=== PATIENT | female | born 1980 | race Caucasian/White ===

== ENCOUNTER 2019-11-16 19:03 | Emergency (ER) | payer SELFPAY ==
[2019-11-16 19:12] VITALS: BP 148/83; PULSE 83; RESP 18; TEMP 37.6; O2SAT 100
--- NOTE | 2019-11-16 19:30 | ED.URI ---
HPI - URI/Sore Throat General Chief Complaint: Upper Respiratory Infection Stated Complaint: sore throat Time Seen by Provider: 11/16/19 19:30 Source: patient and family History of Present Illness HPI Narrative: Patient presents with a sore throat problem, no trouble swallowing no drooling. Patient states her symptoms started earlier today. She has generalized body aches feels more tired than normal. Patient has not taken anything [id number] for symptoms. Normally healthy individual. MD elicited complaint: fever, cough, sore throat and nasal congestion Related Data Allergies Allergy/AdvReac Type Severity Reaction Status Date / Time prednisone AdvReac Unknown Confusion Verified 11/16/19 19:22 Review of Systems Review of Systems: Narrative: CONSTITUTIONAL: Denies chills, or sweats. Reports fever and generalized body aches EYES: Denies visual changes, redness, or discharge. ENT: Denies otalgia. Reports nasal congestion runny nose and sore throat CARDIOVASCULAR: Denies chest pain, palpitations, or edema. RESPIRATORY: Denies dyspnea. Reports occasional cough GASTROINTESTINAL: Denies abdominal pain, nausea, vomiting, or diarrhea. GENITOURINARY: Denies dysuria or hematuria. SKIN: Denies rash or itching. MUSCULOSKELETAL: Denies back pain, joint pain, or myalgia. Reports generalized body aches NEUROLOGIC: Denies headache, numbness, or weakness. PSYCHIATRIC: Denies anxiety or depression. PMFSH Comments At time of signature, agree with nursing past medical, surgical, social and family history. There is no relevant family history pertinent to the presenting complaint Exam Narrative: Exam Narrative: The patient is a well-developed, well-nourished in no acute distress. SKIN: Skin is warm and dry without erythema, swelling or exudate. There is good turgor. No tenting. HEAD: Atraumatic. Normocephalic. No temporal or scalp tenderness. EYES: Moist and bright. Sclera and conjunctivae normal. No discharge. PERRLA. Extraocular motions intact. Gross visual acuity intact. EARS: Pinna is normal shape and contour. Clear external auditory canals. TM pearly shafer with good cone of light, no erythema or suppuration. Bilateral cerumen noted no gross hearing deficit. NOSE: pink, moist mucosa with good air movement. Clear rhinorrhea without nasal flaring. Septum midline. Mouth: moist mucous membranes. THROAT; mild erythema noted to posterior oropharynx with moderate postnasal drainage. Without exudate or ulceration.. Uvula midline. Normal movement of soft palate. NECK: Supple and nontender with full range of motion without discomfort. No meningeal signs. LUNGS: Equal and bilateral breath sounds without wheezes, rales or rhonchi. CHEST: The chest wall is without retractions or use of accessory muscles. HEART: Has a regular rate and rhythm without murmur, gallops, click or rub. ABDOMEN: Soft, nontender with positive active bowel sounds. No rebound tenderness. EXTREMITIES: Without cyanosis, clubbing or edema. Equal 2+ distal pulses and 2 second capillary refill noted. NEUROLOGIC: alert, active, . The patient moves all extremities with normal muscle strength. Normal muscle tone is noted. Normal coordination is noted. NO focal neurological findings noted. Course Vital Signs Vital signs: Vital Signs Temperature 37.6 C 11/16/19 19:12 Pulse Rate 83 11/16/19 19:12 Respiratory Rate 18 11/16/19 19:12 Blood Pressure 148/83 H 11/16/19 19:12 Pulse Oximetry 100 11/16/19 19:12 Temperature 37.6 C 11/16/19 19:12 Pulse Rate 83 11/16/19 19:12 Respiratory Rate 18 11/16/19 19:12 Blood Pressure 148/83 H 11/16/19 19:12 Pulse Oximetry 100 11/16/19 19:12 Addressed elevated BP today. Today's blood pressure higher than recommended range. Discussed importance of follow -up with PCP and possible retirement effects/cardiovascular events related to HTN. Currently patient denies headache, dizziness, vision changes, CP or shortness of breath.
== END 2019-11-16 19:50 | disposition home or self-care (01) ==
PROVIDERS: Emergency Provider Nurse Practitioner Family
DX: J06.9 Acute upper respiratory infection, unspecified (principal); J02.9 Acute pharyngitis, unspecified; M19.90 Unspecified osteoarthritis, unspecified site
CPT/HCPCS: 87081; 87804; 87880; 99213; G0463

== ENCOUNTER 2020-11-23 10:35 | Emergency (ER) | payer MEDICAID, SELFPAY ==
--- NOTE | ~2020-11-23 | XR_ITS ---
EXAMINATION: XR chest 2V EXAM DATE: 11/23/2020 11:39 INDICATION: Abnormal chest x-ray, lung nodule left side. Right-sided back pain. TECHNIQUE: Frontal and lateral projections of the chest obtained and reviewed. Comparison is made to prior examination from 12/12/2015. FINDINGS: The lungs are clear. There are no pleural effusions. The cardiomediastinal silhouette is within normal limits. There is no pneumothorax suspected. Mild thoracic dextroscoliosis. IMPRESSION: Clear lungs. Mild thoracic dextroscoliosis. Reviewed, dictated and finalized at location B. [employer]
--- NOTE | 2020-11-23 10:49 | ED.BACK ---
HPI - Back Pain/Injury General Chief Complaint: Back Pain/Injury Stated Complaint: Back Pain Time Seen by Provider: 11/23/20 10:49 Source: patient and RN notes reviewed History of Present Illness HPI Narrative: Patient is a 40-year-old female who presents the urgent care with complaints of right sided low back pain. Patient states she also has weird feeling in her female parts . Patient does not elaborate on what those weird feelings consist of and she is currently denying of any urinary frequency, burning, urgency or abdominal pain. Patient denies of any fever or vomiting but states she has had intermittent nausea. Patient speaks of many different topics while in the room and appears to be needing psychiatric attention. Patient reports that she was in the emergency room in August and they found a spot on her lung but then she associated the spot on the lung to pneumonia. Patient states that she was treated for both pneumonia and a urinary tract infection due to having blood in the urine. Patient states that it took care of that issue but now the low back pain is back. Patient states that sometimes she feels like someone choking her . And then patient begins to speak about her back pain again. Patient also does not elaborate on the choking sensation and is denying of any history of gastric reflux or vomiting. Patient did mention several times that she was given pain medication for her pain in the emergency room . Patient was made aware that our facility does not refill pain medications. Patient then proceeds to take a phone call and text on her phone while the provider was in the room. Patient does not appear to have any acute medical needs. Patient aware of the plan of care, to the best of my knowledge. Some parts of this dictation were generated by voice recognition software and may contain typographical and/or grammatical inaccuracies. Related Data Home Medications Medication Instructions Recorded Confirmed No Home Medications 11/23/20 11/23/20 Allergies Allergy/AdvReac Type Severity Reaction Status Date / Time prednisone AdvReac Unknown Confusion Verified 11/23/20 10:46 Review of Systems Review of Systems: Narrative: CONSTITUTIONAL: Denies fever, chills, or sweats. EYES: Denies visual changes, redness, or discharge. ENT: Denies rhinorrhea, congestion, sore throat, or otalgia. CARDIOVASCULAR: Denies chest pain, palpitations, or edema. RESPIRATORY: Denies cough or dyspnea. GASTROINTESTINAL: Reports of intermittent nausea GENITOURINARY: Denies dysuria or hematuria. SKIN: Denies rash or itching. MUSCULOSKELETAL: Reports of right-sided low back pain NEUROLOGIC: Denies headache, numbness, or weakness. All other systems reviewed are negative, except as documented in HPI. PMFSH Comments At the time of my signature, I reviewed and agree with the nursing past medical, surgical, social, and family history. There is no relevant family history pertinent to the patient complaint. Exam Narrative: Exam Narrative: GENERAL: This is a well-nourished, well-developed patient, in no apparent distress. HEAD: normocephalic, atraumatic. EYES: PERRL. Sclera clear/white. Vision is grossly intact. EARS: External ears normal NOSE: External nose normal with no obvious nasal discharge, nares without redness, no rhinorrhea. THROAT: Mucous membranes moist NECK: Neck supple CARDIOVASCULAR: Regular rate and rhythm without murmurs, gallops, or rubs. RESPIRATORY: Clear to auscultation. Breath sounds equal bilaterally. No wheezes, rales, or rhonchi. GASTROINTESTINAL: Abdomen soft, mild diffuse tenderness, nondistended. Bowel sounds are active. No guarding. SKIN: warm, intact with no suspicious lesions or rash, good texture and turgor. NEURO: awake, alert, and oriented to person, place and time. There were no obvious focal neurologic abnormalities. EXTREMITIES: No clubbing, cyanosis, or edema. BACK: Bilateral CVA tenderness, more notable on t
[2020-11-23 10:55] VITALS: BP 128/90; PULSE 72; RESP 18; TEMP 36.1; O2SAT 99
== END 2020-11-23 11:50 | disposition home or self-care (01) ==
PROVIDERS: Emergency Provider Nurse Practitioner Family
DX: M54.5 Low back pain (principal); M19.90 Unspecified osteoarthritis, unspecified site
CPT/HCPCS: 71046; 81003; 99213; G0463

== ENCOUNTER 2021-02-16 09:46 | Emergency (ER) | payer OTHER, SELFPAY ==
[2021-02-16 09:53] VITALS: BP 136/92; PULSE 81; RESP 16; TEMP 37.2; O2SAT 100
--- NOTE | 2021-02-16 09:56 | ED.URI ---
HPI - URI/Sore Throat General Chief Complaint: Upper Respiratory Infection Stated Complaint: Sore Throat Source: patient Mode of arrival: ambulatory Limitations: no limitations History of Present Illness HPI Narrative: Candis Mobley is a 40 yo with PMH arthritis, Covidlast year, who comes to [facility] with sore throat since yesterday. Patient is a smoker but does not take any other medication Related Data Allergies Allergy/AdvReac Type Severity Reaction Status Date / Time prednisone AdvReac Unknown Confusion Verified 02/16/21 10:04 Review of Systems Review of Systems: Narrative: CONSTITUTIONAL: Denies fever, chills, sweats. EYES: Denies visual changes, redness, discharge. ENT: Denies rhinorrhea, congestion, has sore throat, otalgia. CARDIOVASCULAR: Denies chest pain, palpitations, edema. RESPIRATORY: Denies dyspnea, wheezing, cough GASTROINTESTINAL: Denies abdominal pain, nausea, vomiting, diarrhea. GENITOURINARY: Denies dysuria, hematuria, abnormal discharge SKIN: Denies rash or itching. NEUROLOGIC: Denies numbness, or focal weakness. PSYCHIATRIC: Denies anxiety or depression. [facility] Past Medical History Medical History Arthritis Scoliosis Social History Social History (Updated 02/16/21 @ 10:16 by Maggie Olson CNP) Smoking packs per day: 1 Smoking cigarettes per day: 20.0 Smoking status: Current every day smoker Tobacco type: cigarettes Alcohol intake: current Comments At time of signature, I agree with nursing past medical, surgical, social and family history. There is no relevant family history pertinent to the presenting complaint. Exam Narrative: Exam Narrative: GENERAL: This is a well-nourished, well-developed patient, in mild distress. HEAD: normocephalic, atraumatic. EYES: Sclera clear/white. Vision is grossly intact. EARS: External ears normal, auditory canals clear and without drainage, TMs normal without perforation. Hearing grossly intact. NOSE: External nose normal without nasal discharge, nares without red, some rhinorrhea. THROAT: Mucous membranes moist, posterior pharynx erythema with white drainage on right NECK: Neck supple, tender right submandibular lymph node CARDIOVASCULAR: Regular rate and rhythm without murmurs, gallops, or rubs. RESPIRATORY: Clear to auscultation. Breath sounds equal bilaterally. No wheezes, rales, or rhonchi. GASTROINTESTINAL: Abdomen soft, SKIN: warm, intact with no suspicious lesions or rash, good texture and turgor. NEURO: awake, alert, and oriented to person, place and time. There were no obvious focal neurologic abnormalities. Steady gait EXTREMITIES: Normal range of motion. BACK: Nontender without deformity Course Course Emergency Course: Patient here with sore throat since yesterday states she has ongoing sinus drainage Strep negative Patient is unable to take prednisone and has both white blotch on right tonsil and pain on palpation of right side of lymph nodes Treat with penicillin and Zyrtec Vital Signs Vital signs: Vital Signs Temperature 99 F 02/16/21 09:53 Pulse Rate 81 02/16/21 09:53 Respiratory Rate 16 02/16/21 09:53 Blood Pressure 136/92 H 02/16/21 09:53 Pulse Oximetry 100 02/16/21 09:53 Temperature 99 F 02/16/21 09:53 Pulse Rate 81 02/16/21 09:53 Respiratory Rate 16 02/16/21 09:53 Blood Pressure 136/92 H 02/16/21 09:53 Pulse Oximetry 100 02/16/21 09:53 MDM - URI/Sore Throat Differential Diagnosis Differential diagnosis: Likely upper respiratory infection, viral infection, bronchitis, pharyngitis and other Lab Data Labs: Strep Screen Presumptive Negative *(Reference Range: Negative)* Critical Care Time Critical Care Time Critical Care Time: No Discharge Plan Discharge Clinical Impression: Pharyngitis Qualifiers: Pharyngitis/tonsillitis etiology: unspecified
== END 2021-02-16 10:33 | disposition home or self-care (01) ==
PROVIDERS: Emergency Provider Nurse Practitioner
DX: J02.9 Acute pharyngitis, unspecified (principal); F17.219 Nicotine dependence, cigarettes, with unspecified nicotine-induced disorders; M19.90 Unspecified osteoarthritis, unspecified site; M41.9 Scoliosis, unspecified
CPT/HCPCS: 87081; 87880; 99213; G0463

== ENCOUNTER 2021-10-15 16:41 | Emergency (ER) | payer OTHER, SELFPAY ==
[2021-10-15 16:46] VITALS: BP 128/77; PULSE 73; RESP 14; TEMP 36.9; O2SAT 100
--- NOTE | 2021-10-15 16:55 | ED.URI ---
HPI - URI/Sore Throat General Chief Complaint: Upper Respiratory Infection Stated Complaint: no smell or taste chest heavy Source: patient Mode of arrival: ambulatory Limitations: no limitations History of Present Illness HPI Narrative: 41-year-old female presented for headache, body aches, sinus pressure/congestion, cough, fever/chills. Onset about 4 days. She endorses loss of taste and smell today. Denies wheezing or chest pain. she is not vaccinated for Covid. Denies medical history, but significant smoking history. Cannot tolerate albuterol inhaler. MD elicited complaint: cough Related Data Allergies Allergy/AdvReac Type Severity Reaction Status Date / Time prednisone AdvReac Unknown Confusion Verified 02/16/21 10:04 Review of Systems Review of Systems: CONSTITUTIONAL: Endorses malaise, chills, sweats, fever. EYES: Endorses pressure behind eyes. Denies visual changes, redness, or discharge. ENT: Reports rhinorrhea, congestion, sinus pain denies otalgia and sore throat. CARDIOVASCULAR: Denies chest pain, palpitations, or edema. RESPIRATORY: Reports cough, post nasal drainage and dyspnea with exertion GASTROINTESTINAL: Denies abdominal pain, nausea, vomiting, diarrhea SKIN: Denies rash or itching. MUSCULOSKELETAL: Endorses myalgia. NEUROLOGIC: Denies headache. [facility] Past Medical History Medical History Arthritis Scoliosis Social History Social History Smoking packs per day: 1 Smoking cigarettes per day: 20.0 Smoking status: Current every day smoker Tobacco type: cigarettes Alcohol intake: current Exam Narrative: GENERAL: Ill-appearing, unkempt, nontoxic no acute distress. HEAD: Normocephalic EYES: PERRLA, conjunctivae clear ENT: Mucous membranes moist. TM pearly nieto with dull light reflex bilaterally; no tragal tenderness. Oropharynx erythematous without lesions and without exudate, no drooling, no hoarseness, no trismus, uvula midline. NECK: Supple. left anterior cervical lymphadenopathy CHEST: Clear to auscultation, breath sounds equal. No wheezing, rhonchi, rales, or stridor. No respiratory distress, speaks in full sentences. HEART: Regular rate and rhythm. No murmur heard. SKIN: Warm, dry, no rash. NEURO: Alert and oriented x3. PSYCH: Normal mood and affect Course Course Emergency Course: covid positive offered to give Rx albuterol rescue inhaler, pt states she cannot tolerate albuterol it causes heart racing. Advised she f/u with PCP for further recommendations. Patient is aware of diagnosis, understands and agrees to treatment plan. Anticipatory guidance given. Patient agrees to follow-up as directed and is aware of reasons to seek care at the emergency department. Portions of this record may have been created with voice recognition software Level of Care: Express Care Visit Vital Signs Vital signs: Vital Signs Temperature 98.5 F 10/15/21 16:46 Pulse Rate 73 10/15/21 16:46 Respiratory Rate 14 10/15/21 16:46 Blood Pressure 128/77 10/15/21 16:46 Pulse Oximetry 100 10/15/21 16:46 Temperature 98.5 F 10/15/21 16:46 Pulse Rate 73 10/15/21 16:46 Respiratory Rate 14 10/15/21 16:46 Blood Pressure 128/77 10/15/21 16:46 Pulse Oximetry 100 10/15/21 16:46 reviewed MDM - URI/Sore Throat Differential Diagnosis Differential diagnosis: Likely upper respiratory infection, sinusitis, viral infection and pharyngitis Lab Data Labs: Lab Results 10/15/21 Range/Units 17:13 POC SARS CoV-2 Ag Positive (Negative) Discharge Plan Discharge Clinical Impression: COVID-19 Patient Disposition: Home, Self-Care Condition: Stable Instructions: Antibiotic Form, COVID-19 (Coronavirus Disease 2019) (ED) Additional Instructions: Your rapid COVID test was positive today. The following recommendations have been made by the CDC and local H
== END 2021-10-15 17:39 | disposition home or self-care (01) ==
PROVIDERS: Emergency Provider Nurse Practitioner Family
DX: U07.1 COVID-19 (principal); M19.90 Unspecified osteoarthritis, unspecified site; M41.9 Scoliosis, unspecified; F17.210 Nicotine dependence, cigarettes, uncomplicated
CPT/HCPCS: 87426; 99213; C9803; G0463

== ENCOUNTER 2023-02-15 18:30 | Emergency (ER) | payer OTHER, SELFPAY ==
[2023-02-15 18:36] VITALS: BP 128/90; PULSE 91; RESP 16; TEMP 37.4; O2SAT 99
--- NOTE | 2023-02-15 18:36 | ED.URI ---
HPI - URI/Sore Throat General Chief Complaint: Upper Respiratory Infection Stated Complaint: Wheezing and congestion Time Seen by Provider: 02/15/23 18:40 Source: patient Mode of arrival: ambulatory Limitations: no limitations History of Present Illness HPI Narrative: 42-year-old female presents for of cough, nasal congestion, subjective fever and fatigue for 3 days. States she is coughing up 'infection' and lungs feel like they are burning. She has not taken anything for symptoms. Endorses similar symptoms of concern to her family earlier in the week. She currently smokes 1 pack per day. She reports cough is so severe it causes gagging/ vomiting. States she is unable to tolerate prednisone causes causes confusion, unable to tolerate albuterol because it makes her feel drunk. Related Data Allergies Allergy/AdvReac Type Severity Reaction Status Date / Time prednisone AdvReac Unknown Confusion Verified 02/16/21 10:04 Review of Systems Review of Systems: CONSTITUTIONAL: Reports body aches, fever, chills EYES: Denies visual changes, redness, or discharge. ENT: reports rhinorrhea, congestion, sore throat CARDIOVASCULAR: Denies chest pain, palpitations, or edema. RESPIRATORY: Reports cough, sob, wheezing. GASTROINTESTINAL: Denies abdominal pain, nausea, or diarrhea. GENITOURINARY: Denies dysuria or hematuria. SKIN: Denies rash, itching, or wounds. MUSCULOSKELETAL: Denies back pain, joint pain, or myalgia. NEUROLOGIC: Denies headache, numbness, tingling, or weakness. All systems reviewed & are unremarkable except as noted in HPI and below PMFSH Past Medical History Medical History Arthritis Scoliosis Social History Social History Smoking packs per day: 1 Smoking cigarettes per day: 20.0 Smoking status: Current every day smoker Tobacco type: cigarettes Alcohol intake: current Comments At time of signature, I have reviewed and agree with nursing past medical, surgical, social and family history unless otherwise noted. Please see nursing chart for further information. There is no relevant family history pertinent to the presenting complaint Exam Narrative: GENERAL: ill-appearing, in no acute distress. EYES: EOMI. No redness or drainage. Conjunctivae normal. ENT: Mucous membranes pink and moist. No rhinorrhea. TMs normal bilaterally. Throat normal. Uvula midline. NECK: Normal AROM. Supple. 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 Right lower lobe exp wheeze noted. HEART: Regular rate and rhythm. No murmur appreciated. ABDOMEN: Soft, nontender, nondistended, normal active bowel sounds. EXTREMITIES: Normal range of motion. No edema. SKIN: Warm, dry, no rash. Capillary refill normal. Normal skin turgor. NEURO: Alert and oriented x3. Gait steady. PSYCH: flat affect. Course Course Emergency Course: Patient is aware of diagnosis, understands and agrees to treatment plan. Anticipatory guidance given. Patient agrees to follow-up as directed and is aware of reasons to seek care at the emergency department. Portions of this record may have been created with voice recognition software Level of Care: Express Care Visit Vital Signs Vital signs: Vital Signs Temperature 99.4 F 02/15/23 18:36 Pulse Rate 91 02/15/23 18:36 Respiratory Rate 16 02/15/23 18:36 Blood Pressure 128/90 02/15/23 18:36 Pulse Oximetry 99 02/15/23 18:36 Oxygen Delivery Room Air 02/15/23 18:36 Temperature 99.4 F 02/15/23 18:36 Pulse Rate 91 02/15/23 18:36 Respiratory Rate 16 02/15/23 18:36 Blood Pressure 128/90 02/15/23 18:36 Pulse Oximetry 99 02/15/23 18:36 Oxygen Delivery Room Air 02/15/23 18:36 MDM - URI/Sore Throat MDM Narrative Medical decision making narrative: Negative COVID test results reviewed with patient. Advised ER transfe
== END 2023-02-15 19:38 | disposition home or self-care (01) ==
PROVIDERS: Emergency Provider Nurse Practitioner Family
DX: J40 Bronchitis, not specified as acute or chronic (principal); Z20.822 Contact with and (suspected) exposure to COVID-19; F17.210 Nicotine dependence, cigarettes, uncomplicated; M19.90 Unspecified osteoarthritis, unspecified site; M41.9 Scoliosis, unspecified
CPT/HCPCS: 87426; 99213; C9803; G0463

== ENCOUNTER 2023-03-07 11:43 | Emergency (ER) | payer OTHER, SELFPAY ==
--- NOTE | ~2023-03-07 | XR_ITS ---
EXAMINATION: XR chest 1V portable DATE: 03/07/2023 12:44 INDICATION: Seizure TECHNIQUE: frontal view of the chest was obtained. COMPARISON: Chest radiograph dated 11/23/2020 FINDINGS: The lungs remain clear with no focal airspace opacities, pulmonary edema, pleural effusion or pneumot horax. The cardiomediastinal silhouette is normal. Mild thoracic dextrocurvature. IMPRESSION: 1. No acute cardiopulmonary disease. Reviewed, dictated and finalized at location A.
--- NOTE | ~2023-03-07 | CT_ITS ---
Non-contrast Head CT History: Seizure COMPARISON: 12/13/2015 Technique: Axial non-contrast imaging of the brain was performed. Dose reduction technique was used on this scan by utilizing automated exposure control and iterative reconstruction technique. The dose -length product (DLP) was 605.33 mGy-cm. Findings: There is no evidence of intracranial hemorrhage, mass lesion, or acute infarct. Brain par enchyma appears normal. The ventricles and subarachnoid spaces are normal in size. The calvarium ap pears normal. The visualized paranasal sinuses and mastoid air cells are clear. Impression: No significant abnormality seen. Reviewed, dictated and finalized at location . Impression: No significant abnormality seen.
[2023-03-07 11:46] VITALS: BP 139/96; PULSE 71; RESP 20; TEMP 36.8; O2SAT 99
--- NOTE | 2023-03-07 12:12 | ECG_ITS ---
Measurements Intervals [place] Rate: 70 P: 56 SC: 156 QRS: 21 QRSD: 95 T: 19 QT: 394 QTc: 427 Interpretive Statements SINUS RHYTHM WITH OCCASIONAL VENTRICULAR PREMATURE COMPLEXES OTHERWISE UNREMARKABLE ECG NO PREVIOUS ECG AVAILABLE FOR COMPARISON Electronically Signed On 03-07-2023 16:15:56 CDT by Rafael Marques M.D.
--- NOTE | 2023-03-07 12:14 | ED.SEIZURE ---
HPI - Seizure General Chief Complaint: Seizure Stated Complaint: seizure Time Seen by Provider: 03/07/23 12:09 Source: patient Related Data Allergies Allergy/AdvReac Type Severity Reaction Status Date / Time prednisone AdvReac Unknown Confusion Verified 02/16/21 10:04 [facility] Past Medical History Medical History Arthritis Scoliosis Social History Social History Smoking packs per day: 1 Smoking cigarettes per day: 20.0 Smoking status: Current every day smoker Tobacco type: cigarettes Alcohol intake: current Course Consultations Consultation #1: Dr. Horton Patient can go home to follow-up as outpatient on Friday. The Keppra 500 twice daily, EEG is not available over the weekend. Date: 03/07/23 Time: 13:14 Vital Signs Vital signs: Vital Signs Temperature 36.8 C 03/07/23 11:46 Pulse Rate 71 03/07/23 11:46 Respiratory Rate 20 03/07/23 11:46 Blood Pressure 139/96 H 03/07/23 11:46 Pulse Oximetry 99 03/07/23 11:46 Oxygen Delivery Room Air 03/07/23 11:46 Temperature 36.8 C 03/07/23 11:46 Pulse Rate 71 03/07/23 11:46 Respiratory Rate 20 03/07/23 11:46 Blood Pressure 139/96 H 03/07/23 11:46 Pulse Oximetry 99 03/07/23 11:46 Oxygen Delivery Room Air 03/07/23 11:46 MDM - Seizure MDM Narrative Medical decision making narrative: Patient presents with seizure-like activities, physical examination showed tongue bite, slightly incoherent, which gradually got better over time. Work-up today showed no significant abnormality to explain patient condition. Patient received 1 g of Keppra IV, to be discharged on Keppra 500 twice daily, discussed with Dr. Horton. The pt was discharged to home.the pt,s condition upon discharge was fair,education was provided to the pt in reference to the final impression,discharge study results,treatment,prognosis and need for follow up . Differential Diagnosis Differential diagnosis: Likely generalized seizure, new onset seizure and other (Anxiety related symptoms) Medical Records Attestation: I reviewed the patient's medical records. Lab Data Attestation: I reviewed the patient's lab results. 03/07/23 12:27 03/07/23 12:27 Labs: Lab Results 03/07/23 03/07/23 03/07/23 Range/Units 12:26 12:27 12:30 WBC 15.6 H (4.5-10.0) K/mm3 RBC 4.53 (4.2-5.4) M/mm3 Hgb 13.8 (12.0-15.0) g/dL Hct 41.3 (37.0-47.0) % MCV 91.2 (80-100) fl MCH 30.5 (26-34) pg MCHC 33.4 (32-36) g/dl RDW 16.1 H (11.5-14.5) % Plt Count 425 H (150-375) k/mm3 MPV 8.8 (7.4-10.4) fl Immature Gran % (Auto) 0.5 (0-0.5) % Neut % (Auto) 75.9 H (45.5-73.1) % Lymph % (Auto) 17.2 L (18.3-44.2) % [place] % (Auto) 5.4 (2.6-8.5) % Eos % (Auto) 0.6 (0-4.4) % Baso % (Auto) 0.4 (0.2-1.2) % Lymph # (Auto) 2.68 (0.9-3.2) K/mm3 [place] # (Auto) 0.8 H (0.1-0.6) K/mm3 Eos # (Auto) 0.1 (0-0.3) K/mm3 Baso # (Auto) 0.1 (0.0-0.1) K/mm3 Abs Immat Gran (auto) 0.08 H (0.00-0.031) K/mm3 Absolute Neuts (auto) 11.9 H (1.3-6.7) K/mm3 Absolute Nucleated RBC 0.0 (0.0-0.012) K/mm3 Nucleated RBC % 0.0 (0.0-0.2) % Sodium 135 L (137-145) mmol/L Potassium 4.3 (3.4-5.0) mmol/L Chloride 107 (98-107) mmol/L Carbon Dioxide 24 (22-30) mmol/L Anion Gap 4 L (8-16) mmol/L BUN 8 (7-17) mg/dL Creatinine 0.70 (0.7-1.0) mg/dL Estim Creat Clear Calc 114 ml/min Estimated GFR > 60 (59 - ) Glucose 89 (65-110) mg/dL POC Capillary Glucose 100 (65-105) mg/dl Calcium 8.9 (8.4-10.2) mg/dL Total Bilirubin 0.7 (0.2-1.3) mg/dL AST 23 (14-36) U/L ALT 19 (6-35) U/L Alkaline Phosphatase 84 (38-126) U/L Total Protein 7.0 (6.3-8.2) g/dL Albumin 4.0 (3.5-5.1) g/dL TSH 2.290 (0.465-4.680) uIU/mL
[2023-03-07] MEDS: levETIRAcetam 1000MG/NACL100ML 1,000 MG/100 ML BAG 400 MG IVPB (12:26)
[2023-03-07 12:33] LABS: Glucose Point of Care 100 mg/dl (65-105)
[2023-03-07 12:37] LABS: Basophils Absolute Auto 0.1 K/mm3 (0.0-0.1); Basophils Percent Auto 0.4 % (0.2-1.2); Eosinophils Absolute Auto 0.1 K/mm3 (0-0.3); Eosinophils Percent Auto 0.6 % (0-4.4); Hematocrit 41.3 % (37.0-47.0); Hemoglobin 13.8 g/dL (12.0-15.0); Immature Granulocyte Absolute 0.08 K/mm3 (0.00-0.031); Immature Granulocyte Percent A 0.5 % (0-0.5); Lymphocytes Absolute Auto 2.68 K/mm3 (0.9-3.2); Lymphocytes Percent Auto 17.2 % (18.3-44.2); Mean Corpuscular HGB Conc 33.4 g/dl (32-36); Mean Corpuscular Hemoglobin 30.5 pg (26-34); Mean Corpuscular Volume 91.2 fl (80-100); Mean Platelet Volume 8.8 fl (7.4-10.4); Monocytes Absolute Auto 0.8 K/mm3 (0.1-0.6); Monocytes Percent Auto 5.4 % (2.6-8.5); Neutrophils Absolute Auto 11.9 K/mm3 (1.3-6.7); Neutrophils Percent Auto 75.9 % (45.5-73.1); Platelet Count Result 425 k/mm3 (150-375); Red Blood Count 4.53 M/mm3 (4.2-5.4); Red Cell Distribution Width 16.1 % (11.5-14.5); White Blood Count 15.6 K/mm3 (4.5-10.0)
[2023-03-07 12:44] LABS: Bacteria Urine None Seen /hpf; Non Pathogenic Casts 0-2; RBC Urine >100 /hpf (0-2); Squamous Epithelial Cell Urine None seen /hpf (Few)
[2023-03-07 12:46] LABS: Ethanol < 10 mg/dL (<10)
[2023-03-07 12:52] LABS: Appearance Urine Cloudy (Clear); Bilirubin Urine Negative (Negative); Blood Urine 3+ (Negative); Color Urine Orange (Yellow); Glucose Urine UA Negative (Negative); Ketones Urine Trace mg/dL (Negative); Leukocyte Esterase Ur 1+ LEU/UL (Negative); Nitrate Urine Negative (Negative); Protein Urine 1+ mg/dL (Negative); Specific Grav Ur 1.019 (1.001-1.035); pH Urine 7.5 (5.0-9.0)
[2023-03-07 12:54] LABS: Add Urine Microscopic? YES
[2023-03-07 12:55] LABS: Amphetamine Screen Urine Negative (Negative); Barbiturate Screen Urine Negative (Negative); Benzodiazepines Screen Urine Negative (Negative); Cannabinoid Screen Urine Positive (Negative); Cocaine Screen Urine Negative (Negative); Methadone Screen Urine Negative (Negative); Opiate Screen Urine Negative (Negative); Phencyclidine Screen Urine Negative (Negative)
[2023-03-07 12:58] LABS: Alanine Aminotransferase 19 U/L (6-35); Alkaline Phosphatase 84 U/L (38-126); Anion Gap 4 mmol/L (8-16); Aspartate Amino Transferase 23 U/L (14-36); Bilirubin,Total 0.7 mg/dL (0.2-1.3); Blood Urea Nitrogen 8 mg/dL (7-17); Calcium 8.9 mg/dL (8.4-10.2); Carbon Dioxide 24 mmol/L (22-30); Chloride 107 mmol/L (98-107); Estimated CRCL calculation 114 ml/min; Estimated Glomerular Filt Rate > 60; Glucose 89 mg/dL (65-110); Potassium 4.3 mmol/L (3.4-5.0); Sodium 135 mmol/L (137-145)
[2023-03-07 13:55] VITALS: BP 121/92; PULSE 73; RESP 18; O2SAT 100
== END 2023-03-07 13:56 | disposition home or self-care (01) ==
PROVIDERS: Emergency Provider Emergency Medicine
DX: G40.909 Epilepsy, unspecified, not intractable, without status epilepticus (principal); F12.10 Cannabis abuse, uncomplicated; M19.90 Unspecified osteoarthritis, unspecified site; M41.9 Scoliosis, unspecified; F17.210 Nicotine dependence, cigarettes, uncomplicated; I49.3 Ventricular premature depolarization
CPT/HCPCS: 36415; 70450; 71045; 80053; 80307; 81001; 81025; 82948; 84443; 85025; 87086; 93005; 96365; 99284; J1953

== ENCOUNTER 2024-01-28 19:26 | Emergency (ER) | payer OTHER, SELFPAY ==
[2024-01-28 19:25] VITALS: BP 167/115; PULSE 74; RESP 15; TEMP 36.8; O2SAT 100
[2024-01-28 19:32] VITALS: BP 167/115; PULSE 72; RESP 15; TEMP 36.8; O2SAT 100
[2024-01-28 19:54] LABS: Basophils Absolute Auto 0.1 K/mm3 (0.0-0.1); Basophils Percent Auto 0.5 % (0.2-1.2); Eosinophils Absolute Auto 0.2 K/mm3 (0-0.3); Eosinophils Percent Auto 1.2 % (0-4.4); Hematocrit 44.2 % (37.0-47.0); Hemoglobin 14.8 g/dL (12.0-15.0); Immature Granulocyte Absolute 0.06 K/mm3 (0.00-0.031); Immature Granulocyte Percent A 0.4 % (0-0.5); Lymphocytes Absolute Auto 3.72 K/mm3 (0.9-3.2); Lymphocytes Percent Auto 25.3 % (18.3-44.2); Mean Corpuscular HGB Conc 33.5 g/dl (32-36); Mean Corpuscular Hemoglobin 31.2 pg (26-34); Mean Corpuscular Volume 93.1 fl (80-100); Mean Platelet Volume 8.9 fl (7.4-10.4); Monocytes Percent Auto 6.5 % (2.6-8.5); Neutrophils Absolute Auto 9.8 K/mm3 (1.3-6.7); Neutrophils Percent Auto 66.1 % (45.5-73.1); Platelet Count Result 415 k/mm3 (150-375); Red Blood Count 4.75 M/mm3 (4.2-5.4); Red Cell Distribution Width 14.6 % (11.5-14.5); White Blood Count 14.7 K/mm3 (4.5-10.0)
[2024-01-28 20:02] LABS: Alanine Aminotransferase 12 U/L (6-35); Albumin Level 4.5 g/dL (3.5-5.1); Alkaline Phosphatase 74 U/L (38-126); Anion Gap 9 mmol/L (4-12); Aspartate Amino Transferase 21 U/L (14-36); Bilirubin,Total 0.4 mg/dL (0.2-1.3); Blood Urea Nitrogen 8 mg/dL (7-17); Calcium 8.9 mg/dL (8.4-10.2); Carbon Dioxide 20 mmol/L (22-30); Chloride 107 mmol/L (98-107); Estimated CRCL calculation 129 ml/min; Estimated Glomerular Filt Rate > 60; Glucose 87 mg/dL (65-110); Potassium 4.1 mmol/L (3.4-5.0); Sodium 136 mmol/L (137-145)
--- NOTE | 2024-01-28 20:31 | ED.DENTAL ---
HPI - Dental/Oral General Chief complaint: Dental/Oral Stated complaint: dental abcess Time Seen by Provider: 01/28/24 19:39 History of Present Illness HPI Narrative: patient is a 43-year-old female who presents ER with left-sided dental abscess. Lower jaw near teeth number 21. Pain improved with Toradol. Went to urgent care today but she reports her doctor was not covered by her insurance to the pharmacy would not fill her Augmentin under her insurance but and said return to charge her 40 dollars. Pain with chewing. No SOA/CP/N/V. Related Data Allergies Allergy/AdvReac Type Severity Reaction Status Date / Time prednisone AdvReac Unknown Confusion Verified 02/16/21 10:04 Review of Systems Constitutional: Constitutional: Reports no additional constitutional complaints ENT: Denies nasal congestion and Denies sore throat Comments: dental pain Cardiovascular: Cardiovascular: Reports no additional cardiovascular complaints Respiratory: Respiratory: Reports no additional respiratory complaints PMFSH Past Medical History Medical History Arthritis Scoliosis Social History Social History Smoking packs per day: 1 Smoking cigarettes per day: 20.0 Smoking status: Current every day smoker Tobacco type: cigarettes Alcohol intake: current Exam Narrative: GENERAL: Well-appearing, well-nourished, and in no acute distress. HEAD: Normocephalic, atraumatic. ENT: Mucous membranes moist. Dental and tooth number 21 with lower jaw swelling. Normal posterior oropharynx. NECK: Supple. EXTREMITIES: Normal range of motion. No edema. NEURO: Alert and oriented x3. PSYCH: Normal mood and affect. Course Course Emergency Course: Toradol for pain here. We will rewrite patient prescriptions in hopes that they will be covered since she does have [place] Medicaid and Augmentin is a covered drug. Vital Signs Vital signs: Vital Signs Temperature 98.2 F 01/28/24 19:25 Pulse Rate 74 01/28/24 19:25 Respiratory Rate 15 01/28/24 19:25 Blood Pressure 167/115 H 01/28/24 19:25 Pulse Oximetry 100 01/28/24 19:25 Oxygen Delivery Room Air 01/28/24 19:25 Temperature 98.2 F 01/28/24 19:32 Pulse Rate 72 05/15/24 19:32 Respiratory Rate 15 01/28/24 19:32 Blood Pressure 167/115 H 01/28/24 19:32 Pulse Oximetry 100 01/28/24 19:32 Oxygen Delivery Room Air 01/28/24 19:25 MDM - Dental/Oral Lab Data 01/28/24 19:35 01/28/24 19:35 Labs: Lab Results 01/28/24 Range/Units 19:35 WBC 14.7 H (4.5-10.0) K/mm3 RBC 4.75 (4.2-5.4) M/mm3 Hgb 14.8 (12.0-15.0) g/dL Hct 44.2 (37.0-47.0) % MCV 93.1 (80-100) fl MCH 31.2 (26-34) pg MCHC 33.5 (32-36) g/dl RDW 14.6 H (11.5-14.5) % Plt Count 415 H (150-375) k/mm3 MPV 8.9 (7.4-10.4) fl Immature Gran % (Auto) 0.4 (0-0.5) % Neut % (Auto) 66.1 (45.5-73.1) % Lymph % (Auto) 25.3 (18.3-44.2) % [place] % (Auto) 6.5 (2.6-8.5) % Eos % (Auto) 1.2 (0-4.4) % Baso % (Auto) 0.5 (0.2-1.2) % Lymph # (Auto) 3.72 H (0.9-3.2) K/mm3 [place] # (Auto) 1.0 H (0.1-0.6) K/mm3 Eos # (Auto) 0.2 (0-0.3) K/mm3 Baso # (Auto) 0.1 (0.0-0.1) K/mm3 Abs Immat Gran (auto) 0.06 H (0.00-0.031) K/mm3 Absolute Neuts (auto) 9.8 H (1.3-6.7) K/mm3 Absolute Nucleated RBC 0.000 (0.0-0.012) K/mm3 Nucleated RBC % 0.0 (0.0-0.2) % Sodium 136 L (137-145) mmol/L Potassium 4.1 (3.4-5.0) mmol/L Chloride 107 (98-107) mmol/L Carbon Dioxide 20 L (22-30) mmol/L Anion Gap 9 (4-12) mmol/L BUN 8 (7-17) mg/dL Creatinine 0.60 L (0.7-1.0) mg/dL Estim Creat Clear Calc 129 ml/min Estimated GFR > 60 (59 - ) Glucose 87 (65-110) mg/dL Calcium 8.9 (8.4-10.2) mg/dL Total Bilirubin 0.4 (0.2-1.3) mg/dL AST 21 (14-36) U/L ALT 12 (6-35) U/L Alkaline Phosphatase 74
[2024-01-28] MEDS: KETOROLAC (*BKC) 60 MG/2 ML VIAL IM (20:41)
--- NOTE | 2024-01-28 20:50 | PC.NURSE ---
Pt given pain medication and notified that I would return once I received dc papers for her. Pt stated she was not waiting for dc papers and was going to get dressed and leave. Pt exited ED at 2049
--- NOTE | 2024-01-28 21:16 | PC.NURSE ---
Pt left ed before receiving discharge instructions/ packet. Pt had IV in place when she left ED. This RN attempted to call pts cell phone number with no answer and no options for voicemail. This RN contacted [place] [employer] who will be going to pts residence.
--- NOTE | 2024-01-28 21:29 | PC.NURSE ---
Pt return call to ED stating that she pulled her IV out prior to leaving the ED. José Antonio RICHARDS still notified and will dispatch an officer to pt home.
--- NOTE | 2024-01-28 21:48 | PC.NURSE ---
José Antonio RICHARDS called back saying officers made contact at the pts home and IV was removed.
== END 2024-01-28 20:50 | disposition home or self-care (01) ==
PROVIDERS: Emergency Medicine; Emergency Provider Emergency Medicine; PCP Internal Medicine
DX: K04.7 Periapical abscess without sinus (principal)
CPT/HCPCS: 36415; 80053; 81025; 85025; 96372; 99283; J1885

== ENCOUNTER 2024-02-02 13:10 | Emergency (ER) | payer OTHER, SELFPAY ==
[2024-02-02 13:25] VITALS: BP 136/95; PULSE 62; RESP 18; TEMP 36.8; O2SAT 100
--- NOTE | 2024-02-02 15:14 | ED.GENADULT ---
HPI - General Adult General Chief complaint: Dental/Oral Stated complaint: mouth abscess Time Seen by Provider: 02/02/24 15:14 Focused HPI: Candis Mobley is a 43 y/o female who presents with reports of having a toothache that started over a week ago , she developed an abscess she was started on Augmentin on 01/28 four days ago. She states that the abscess drained today and she has had a lot of pus out today GENERAL: Well-appearing, well-nourished, and in no acute distress. HEAD: Normocephalic, atraumatic. CHEST: Clear to auscultation. ?No respiratory distress. HEART: Regular rate and rhythm.? NEURO: ?Alert and oriented x3. Patient screened in triage and initial orders placed.? ?Additional care and disposition to be based upon?diagnostic testing and treatment. History of Present Illness HPI narrative: Candis Mobley is a 43 y/o female who presents with reports of having a toothache that started over a week ago , she developed an abscess she was started on Augmentin on 01/28 four days ago. She states that the abscess drained today and she has had a lot of pus out today and it is still oozing, she is still on the Augmentin and follow up coming up with a dentist Related Data Allergies Allergy/AdvReac Type Severity Reaction Status Date / Time prednisone AdvReac Unknown Confusion Verified 02/16/21 10:04 Review of Systems Review of Systems: All systems reviewed & are unremarkable except as noted in HPI and below PMFSH Past Medical History Medical History Arthritis Scoliosis Social History Social History Smoking packs per day: 1 Smoking cigarettes per day: 20.0 Smoking status: Current every day smoker Tobacco type: cigarettes Alcohol intake: current Exam Const: General: healthy appearing and no acute distress Nutritional Appearance: well nourished Orientation/consciousness: patient oriented x3 Limitations: no limitations HENMT: Head: normal to inspection Face/Nose/Sinus: Normal external nose present Teeth and gingiva: dentition normal Eyes: Conjunctivae: conjunctivae normal Pupils: Equal, round and reactive pupils present EOM: EOMs intact bilaterally Direct Ophthalmoscopy: no photophobia Neck: Neck: normal visual inspection Chest: Chest palpation & inspection: normal inspection of the chest Resp: Effort & Inspection: normal respiratory effort Cardio: Rate: regular rate GI: Auscultation: normal bowel sounds Skin: General skin exam: normal color Neuro: General: patient oriented x3 and moves all extremities Speech: normal speech Psych: Mental Status: mental status grossly normal Affect: normal affect Attitude: cooperative Course Vital Signs Vital signs: Vital Signs Temperature 36.8 C 02/02/24 13:25 Pulse Rate 62 02/02/24 13:25 Respiratory Rate 18 02/02/24 13:25 Blood Pressure 136/95 H 02/02/24 13:25 Pulse Oximetry 100 02/02/24 13:25 Temperature 36.8 C 02/02/24 13:25 Pulse Rate 62 02/02/24 13:25 Respiratory Rate 18 02/02/24 13:25 Blood Pressure 136/95 H 02/02/24 13:25 Pulse Oximetry 100 02/02/24 13:25 Medical Decision Making [facility] Narrative Medical decision making narrative: 43 y/o female with draining dental abscess still on antibiotics Will treat her pain/ encouraged warm compresses to continue drainage Close follow up with PCP Return precautions provided Medical Records Medical records reviewed: Yes I reviewed the external patient's medical records. Vital Signs Vital Signs: Vital Signs Temperature 36.8 C 02/02/24 13:25 Pulse Rate 62 02/02/24 13:25 Respiratory Rate 18 02/02/24 13:25 Blood Pressure 136/95 H 02/02/24 13:25 Pulse Oximetry 100 02/02/24 13:25 Temperature 36.8 C 02/02/24 13:25 Pulse Rate 62 02/02/24 13:25 Respiratory Rate 18 02/02/24 13:25 Blood Pressure 136/95 H
[2024-02-02] MEDS: KETOROLAC (*BKC) 60 MG/2 ML VIAL IM (16:28)
[2024-02-02] MEDS: HYDROcodone/acetaminophen (*CRX) 5-325 MG TABLET 1 TAB PO (16:29)
== END 2024-02-02 16:42 | disposition home or self-care (01) ==
PROVIDERS: Emergency Provider Nurse Practitioner Family; PCP Internal Medicine
DX: K08.9 Disorder of teeth and supporting structures, unspecified (principal); K02.9 Dental caries, unspecified; M19.90 Unspecified osteoarthritis, unspecified site; F17.210 Nicotine dependence, cigarettes, uncomplicated
CPT/HCPCS: 95863; 96372; 99283; A9270; J1885

== ENCOUNTER 2024-03-11 18:22 | Emergency (ER) | payer OTHER, SELFPAY ==
--- NOTE | ~2024-03-11 | CT_ITS ---
EXAMINATION: CT abdomen pelvis w con DATE: 03/11/2024 20:40 INDICATION: right side abdominal pain TECHNIQUE: Computed tomography (CT) of the abdomen and pelvis was performed with 100 mL Omnipaque-350 intravenous contrast. Automated exposure control and iterative reconstruction technique were employe d. The dose-length product was 1489.47 mGy-cm. COMPARISON: Right upper quadrant ultrasound, same date. FINDINGS: Lower thorax: Unremarkable Liver: Normal. Biliary/Gallbladder: Gallbladder is normal. The gallstones identified at the prior ultrasound are not seen by CT. No bile duct dilation. Pancreas: No mass or duct dilation. Spleen: Normal. Adrenals:No mass. Kidneys: No suspicious mass, obstructing stone, or hydronephrosis. GI tract: No small or large bowel dilation. The appendix is not confidently identified. Mesentery/Peritoneum: No ascites, mass, or free air. Retroperitoneum: No mass. Pelvis: Pelvic organs are within normal limits. Left corpus luteal cyst. Simple 3.1 cm right ovarian cyst which requires no additional evaluation. Soft Tissues: Soft tissues and body wall unremarkable. Bones: No acute osseous finding. IMPRESSION: No acute abdominopelvic process detected. Reviewed, dictated and finalized at location K.
--- NOTE | ~2024-03-11 | US_ITS ---
EXAMINATION: US abdomen limited DATE: 03/11/2024 20:29 INDICATION: right upper quadrant pain TECHNIQUE: Multiple grayscale and Doppler ultrasound images of limited portions of the abdomen were o btained. COMPARISON: None available. FINDINGS: The visualized portions of the pancreas are normal. The liver is normal with normal echogen icity and echotexture. No surface nodularity. Normal hepatopetal flow in the main portal vein. The ga llbladder is contracted. Gallstones are present. No pericholecystic fluid or wall thickening. The com mon bile duct measures 4 mm. There was no sonographic Malhotra sign. IMPRESSION: Cholelithiasis. Contracted gallbladder which limits evaluation, although no overt signs of gallbladde r inflammatory change or present. Reviewed, dictated and finalized at location K. IMPRESSION: Cholelithiasis. Contracted gallbladder which limits evaluation, although no ove rt signs of gallbladder inflammatory change or present.
[2024-03-11 18:25] VITALS: BP 136/87; PULSE 78; RESP 20; TEMP 36.8; O2SAT 99
[2024-03-11 19:50] LABS: Basophils Absolute Auto 0.1 K/mm3 (0.0-0.1); Basophils Percent Auto 0.4 % (0.2-1.2); Eosinophils Absolute Auto 0.3 K/mm3 (0-0.3); Eosinophils Percent Auto 1.9 % (0-4.4); Hematocrit 43.6 % (37.0-47.0); Hemoglobin 14.3 g/dL (12.0-15.0); Immature Granulocyte Absolute 0.05 K/mm3 (0.00-0.031); Immature Granulocyte Percent A 0.3 % (0-0.5); Lymphocytes Absolute Auto 4.25 K/mm3 (0.9-3.2); Lymphocytes Percent Auto 29.7 % (18.3-44.2); Mean Corpuscular HGB Conc 32.8 g/dl (32-36); Mean Corpuscular Hemoglobin 30.8 pg (26-34); Mean Corpuscular Volume 93.8 fl (80-100); Monocytes Absolute Auto 0.8 K/mm3 (0.1-0.6); Monocytes Percent Auto 5.5 % (2.6-8.5); Neutrophils Absolute Auto 8.9 K/mm3 (1.3-6.7); Neutrophils Percent Auto 62.2 % (45.5-73.1); Platelet Count Result 352 k/mm3 (150-375); Red Blood Count 4.65 M/mm3 (4.2-5.4); Red Cell Distribution Width 14.6 % (11.5-14.5); White Blood Count 14.3 K/mm3 (4.5-10.0)
[2024-03-11 19:59] LABS: Alanine Aminotransferase 15 U/L (6-35); Albumin Level 4.2 g/dL (3.5-5.1); Alkaline Phosphatase 67 U/L (38-126); Anion Gap 7 mmol/L (4-12); Aspartate Amino Transferase 22 U/L (14-36); Bilirubin,Total 0.6 mg/dL (0.2-1.3); Blood Urea Nitrogen 12 mg/dL (7-17); Calcium 9.7 mg/dL (8.4-10.2); Carbon Dioxide 23 mmol/L (22-30); Chloride 107 mmol/L (98-107); Estimated CRCL calculation 101 ml/min; Estimated Glomerular Filt Rate > 60; Glucose 89 mg/dL (65-110); Lipase 113 U/L (23-300); Potassium 3.8 mmol/L (3.4-5.0); Sodium 137 mmol/L (137-145)
[2024-03-11] MEDS: SODIUM CHLORIDE 0.9% IV 1,000 ML 999 ML IV CONT (20:10)
[2024-03-11] MEDS: MORPHINE SULFATE (*CRX) 4 MG/ML INJ IV PUSH (20:11)
[2024-03-11 20:25] LABS: Appearance Urine Clear (Clear); Bacteria Urine None Seen /hpf; Bilirubin Urine Negative (Negative); Blood Urine Trace (Negative); Color Urine Yellow (Yellow); Glucose Urine UA Negative (Negative); Ketones Urine Negative (Negative); Leukocyte Esterase Ur Negative LEU/UL (Negative); Need Manual Microscopic Reviewed; Nitrate Urine Negative (Negative); Non Pathogenic Casts 0-2; Protein Urine Negative (Negative); RBC Urine 0-2 /hpf (0-2); Specific Grav Ur 1.003 (1.001-1.035); Squamous Epithelial Cell Urine None Seen /hpf (Few); Urobilinogen Urine 0.2 mg/dL (<2.0); WBC Urine 0-5 /hpf (0-3)
[2024-03-11 20:26] LABS: Add Urine Microscopic? YES
--- NOTE | 2024-03-11 21:45 | ED.GENADULT ---
HPI - General Adult General Chief complaint: Urogenital-Female Stated complaint: flank pain Time Seen by Provider: 03/11/24 19:34 History of Present Illness HPI narrative: patient is a 43-year-old female who presents emergency department with chief complaint of right-sided abdominal pain right-sided flank patient reports that she had some bloody diarrhea about 2 days ago reports her abdomen is been cramping has been irritated. The patient reports that the pain is improved whenever she lays on her left side reports that she has had no fever does report that she has had some nausea. Related Data Allergies Allergy/AdvReac Type Severity Reaction Status Date / Time prednisone AdvReac Unknown Confusion Verified 02/16/21 10:04 Review of Systems Review of Systems: A 10 system review of systems was completed on the patient and is negative except for what is stated in the HPI. Nursing and ancillary documentation was reviewed. PMFSH Past Medical History Medical History Arthritis Scoliosis Social History Social History Smoking packs per day: 1 Smoking cigarettes per day: 20.0 Smoking status: Current every day smoker Tobacco type: cigarettes Alcohol intake: current Exam Narrative: GENERAL: Well-appearing, well-nourished, and in no acute distress. HEAD: Normocephalic, atraumatic. EYES: PERRLA and EOMI. ENT: Nares clear, no rhinorrhea or epistaxis. Mucous membranes moist. NECK: Supple. CHEST: Clear to auscultation. No respiratory distress. HEART: Regular rate and rhythm. No murmur heard. Normal peripheral pulses. ABDOMEN: Soft, Diffusely tender to palpation throughout the abdomen, nondistended, normal active bowel sounds. EXTREMITIES: Normal range of motion. No edema. SKIN: Warm, dry, no rash. NEURO: No focal deficits. Alert and oriented x3. PSYCH: Normal mood and affect. Course Vital Signs Vital signs: Vital Signs Temperature 36.8 C 03/11/24 18:25 Pulse Rate 78 03/11/24 18:25 Respiratory Rate 20 03/11/24 18:25 Blood Pressure 136/87 03/11/24 18:25 Pulse Oximetry 99 03/11/24 18:25 Oxygen Delivery Room Air 03/11/24 18:25 Temperature 36.8 C 03/11/24 18:25 Pulse Rate 78 03/11/24 18:25 Respiratory Rate 20 03/11/24 18:25 Blood Pressure 136/87 03/11/24 18:25 Pulse Oximetry 99 03/11/24 18:25 Oxygen Delivery Room Air 03/11/24 18:25 Medical Decision Making MDM Narrative Medical decision making narrative: differential diagnosis includes pyelonephritis, ureterolithiasis, cholecystitis, diverticulitis colitis, appendicitis laboratory studies were obtained on the patient showed white count 14.3 electrolytes are within normal limits liver enzymes within normal limits lipase was normal urinalysis showed no evidence UTI ultrasound showed Cholelithiasis. Contracted gallbladder which limits evaluation, although no overt signs of gallbladder inflammatory change or present. the CT scan of the abdomen pelvis showed FINDINGS: Lower thorax: Unremarkable Liver: Normal. Biliary/Gallbladder: Gallbladder is normal. The gallstones identified at the prior ultrasound are not seen by CT. No bile duct dilation. Pancreas: No mass or duct dilation. Spleen: Normal. Adrenals:No mass. Kidneys: No suspicious mass, obstructing stone, or hydronephrosis. GI tract: No small or large bowel dilation. The appendix is not confidently identified. Mesentery/Peritoneum: No ascites, mass, or free air. Retroperitoneum: No mass. Pelvis: Pelvic organs are within normal limits. Left corpus luteal cyst. Simple 3.1 cm right ovarian cyst which requires no additional evaluation. Soft Tissues: Soft tissues and body wall unremarkable. Bones: No acute osseous finding. IMPRESSION: No acute abdominopelvic process detected. Vital Signs Vital Signs: Vital
[2024-03-11 22:40] VITALS: BP 131/71; PULSE 52; RESP 16; O2SAT 99
== END 2024-03-11 22:42 | disposition home or self-care (01) ==
PROVIDERS: Emergency Provider Emergency Medicine; PCP Physician Assistant
DX: K80.20 Calculus of gallbladder without cholecystitis without obstruction (principal); M19.90 Unspecified osteoarthritis, unspecified site; F17.210 Nicotine dependence, cigarettes, uncomplicated; Z79.899 Other long term (current) drug therapy
CPT/HCPCS: 36415; 74177; 76705; 80053; 81001; 83690; 85025; 96361; 96374; 99284; J2270; J7030; Q9967

== ENCOUNTER 2024-11-18 12:37 | Emergency (ER) | payer OTHER, SELFPAY ==
[2024-11-18 12:47] VITALS: BP 134/81; PULSE 60; RESP 16; TEMP 37.1; O2SAT 100
--- NOTE | 2024-11-18 13:26 | ED_ITS ---
HPI - Skin/Abscess/Foreign Bdy General Chief complaint: Skin/Abscess/Foreign Body Stated complaint: Rash Source: patient Mode of arrival: ambulatory Limitations: no limitations History of Present Illness HPI narrative: 44-year-old female presented for complaint of red bumps to the back of the neck/ upper back and one to the stomach over the past few days. Says she first noticed after letting her pet rat crawl around on her. States its where his balls were. Endorses itching to the areas. Not applying anything to the sites. Denies lip, tongue, or throat swelling, shortness of breath or wheezing. Denies changes to soap, detergent, lotion, or any other exposures. No one else in the house or any contacts with similar symptoms. States she is staying in a motel and thought they were bed bugs, but denies any other locations of the lesions. Related Data Home Medications ?Medication ?Instructions ?Recorded ?Confirmed ?Last Taken ?Type escitalopram oxalate 20 mg tablet mg 11/18/24 Unknown History Allergies Allergy/AdvReac Type Severity Reaction Status Date / Time prednisone AdvReac Unknown Confusion Verified 11/18/24 12:50 Review of Systems Review of Systems: CONSTITUTIONAL: Denies body aches, fever, chills, or sweats. EYES: Denies visual changes, redness, or discharge. ENT: Denies rhinorrhea, congestion CARDIOVASCULAR: Denies chest pain, palpitations, or edema. RESPIRATORY: Denies cough or dyspnea. GASTROINTESTINAL: Denies abdominal pain, nausea, vomiting, or diarrhea. SKIN: Per HPI MUSCULOSKELETAL: Denies back pain, joint pain, or myalgia. NEUROLOGIC: Denies headache, numbness, tingling, or weakness. PMFSH Past Medical History Medical History Arthritis Scoliosis Social History Social History Smoking packs per day: 1 Smoking cigarettes per day: 20.0 Smoking status: Current every day smoker Tobacco type: cigarettes Alcohol intake: current Comments At time of signature, I have reviewed and agree with nursing past medical, surgical, social and family history unless otherwise noted. Please see nursing chart for further information. There is no relevant family history pertinent to the presenting complaint Exam Narrative: GENERAL: Well-appearing EYES: conjunctivae clear, and EOMI. ENT: Mucous membranes moist. Oropharynx without edema, erythema or lesions. NECK: Supple. No lymphadenopathy CHEST: Clear to auscultation. HEART: Regular rate and rhythm. SKIN: Warm, dry. Seven scattered round erythematous slightly raised skin lesions noted to the trapezius area approximately 1.5 cm in diameter with the dried scabbed center, no drainage, no fluctuance, nontender. One lesion is note d to the center of the abdomen. All appear in the same stage of healing. NEURO: Alert and oriented x3. Course Course Emergency Course: Patient is aware of diagnosis, understands and agrees to treatment plan. Anticipatory guidance given. Patient agrees to follow-up as directed and is aware of reasons to seek care at the emergency department. Portions of this record may have been created with voice recognition software Level of Care: Express Care Visit Vital Signs Vital signs: Vital Signs Temperature 98.8 F 11/18/24 12:47 Pulse Rate 60 11/18/24 12:47 Respiratory Rate 16 11/18/24 12:47 Blood Pressure 134/81 11/18/24 12:47 Pulse Oximetry 100 11/18/24 12:47 Oxygen Delivery Room Air 11/18/24 12:47 Temperature 98.8 F 11/18/24 12:47 Pulse Rate 60 11/18/24 12:47 Respiratory Rate 16 11/18/24 12:47 Blood Pressure 134/81 11/18/24 12:47 Pulse Oximetry 100 11/18/24 12:47 Oxygen Delivery Room Air 11/18/24 12:47 Reviewed MDM - Skin/Abscess/Foreign Bdy MDM Narrative Medical decision making narrative: Discussed physical exam findings. reviewed prescriptions. Advised supportive measures and signs/symptoms to go to the ER. Pt is appropriate for outpt treatment and f/u. Instructed patient to go to nearest ER immediately for any worsening symptoms including but not limited to: fever, spreading rash, pain, sore throat, headache, dizziness, chest pain, trouble breathing, or any symptoms concerning to the patient. Differential Diagnosis Differential diagnosis: Likely abscess of skin or subcutaneous tissue, urticaria, herpes zoster, cellulitis and contact dermatitis Discharge Plan Discharge Clinical Impression: Contact dermatitis Patient Disposition: Home, Self-Care Condition: Stable Instructions: Antibiotic Form, Dermatitis (ED) Additional Instructions: Take steroids and antibiotic as directed. Benadryl every 8 hours as needed for itching Apply ointment as directed Cool compresses to the sites of itching, avoid hot water. Avoid scratching to reduce the risk of infection keep the skin clean and dry using gentle soap and water, avoid hydrogen peroxide or alcohol Follow up with your primary care provider as needed in 1 week Go to the ER for worsening symptoms or concerns (lip, tongue, throat swellin g/itching, trouble breathing etc) Patient Language: [place] Island[place] Prescriptions: New prednisone 20 mg tablet 20 mg PO DAILY 4 Days Qty: 4 0RF cephalexin 500 mg capsule 500 mg PO Q8H 5 Days Qty: 15 0RF mupirocin 2 % ointment 1 applic topical BID 7 Days Qty: 22 0RF No Action albuterol sulfate 90 mcg/actuation HFA aerosol inhaler 1 inh inhalation QID PRN (Reason: shortness of breath or wheezing) Qty: 8.5 0RF escitalopram oxalate 20 mg tablet levetiracetam [Keppra] 500 mg tablet 500 mg PO BID Qty: 30 0RF dicyclomine 20 mg tablet 20 mg PO QID PRN (Reason: abdominal discomfort) Qty: 20 0RF diclofenac potassium 50 mg tablet 50 mg PO TID PRN (Reason: pain) Qty: 21 0RF Follow-up/Referrals: Victorino,LIDIA Xie [Primary Care Provider] - Time of Disposition: 13:37
== END 2024-11-18 13:44 | disposition home or self-care (01) ==
PROVIDERS: Emergency Provider Nurse Practitioner Family; PCP Physician Assistant
DX: L25.9 Unspecified contact dermatitis, unspecified cause (principal); F17.210 Nicotine dependence, cigarettes, uncomplicated; M19.90 Unspecified osteoarthritis, unspecified site; M41.9 Scoliosis, unspecified
CPT/HCPCS: 99213; G0463

== ENCOUNTER 2025-06-26 11:12 | Emergency (ER) | payer OTHER, SELFPAY ==
--- NOTE | 2025-06-26 11:16 | ED_ITS ---
HPI - URI/Sore Throat General Chief Complaint: Upper Respiratory Infection Stated Complaint: Nasal Congestion/Cough/Chest Congestion Time Seen by Provider: 06/26/25 11:16 Source: patient Mode of arrival: ambulatory Limitations: no limitations History of Present Illness HPI Narrative: Candis is a 45-year-old female patient presenting to the clinic today with complaints of nasal congestion, cough, sore throat, shortness breath, and chest congestion/tightness x3 days. She reports is coughing up green phlegm. History of asthma. She is a current smoker. Allergies to prednisone-makes her feel confused/drunk. Has not taken any other steroids. History of seizures-takes Keppra. No fevers, chills, body aches. Patient states she is unable to use her albuterol inhaler as this makes her feel as though she is having palpitations. Related Data Allergies Allergy/AdvReac Type Severity Reaction Status Date / Time prednisone AdvReac Unknown Confusion Verified 06/26/25 11:26 Review of Systems Review of Systems: Pertinent positives per HPI. Patient denies any fever, chills, rash, headache, visual changes, dizziness,chest pain, palpitations, nausea, vomiting, diarrhea, constipation, abdominal pain, or any urinary issues. [facility] Past Medical History Medical History Scoliosis Arthritis Social History Social History Smoking packs per day: 1 Smoking cigarettes per day: 20.0 Smoking status: Current every day smoker Tobacco type: cigarettes Alcohol intake: current Comments At the time of my signature, I reviewed and agree with the nursing past medical, surgical, social, and family history. There is no relevant family history pertinent to the patient complaint. Exam Narrative: General: Well-developed, obese, in no apparent distress Head: Normocephalic, atraumatic Eyes: Pupils equally round and reactive to light bilaterally, EOM intact, sclera and conjunctive clear, no discharge, lids normal Ears: TMs intact and congested, ear canals clear, no drainage, grossly hearing normal. Nose: Nares patent, clear nasal discharge, moderate inflammation, no sinus t enderness. Mouth: Oral pharynx red without lesions or masses, good dentition, MMM. Postnasal drip Neck: Supple, trachea midline, no enlargement of anterior or posterior cervical nodes, no thyroid masses or goiter palpable. Cardio: Regular rate and rhythm, s1 and s2 normal, no murmur appreciated. Resp: Lung sounds tight with some faint occasional rhonchi, no rales, wheezing, or rubs Course Course Emergency Course: Portions of this record may have been created with voice recognition software. Level of Care: Express Care Visit Vital Signs Vital signs: Vital Signs Temperature 36.9 C 06/26/25 11:18 Pulse Rate 98 06/26/25 11:18 Respiratory Rate 16 06/26/25 11:18 Blood Pressure 145/80 H 06/26/25 11:18 Pulse Oximetry 99 06/26/25 11:18 Oxygen Delivery Room Air 06/26/25 11:18 Temperature 36.9 C 06/26/25 11:18 Pulse Rate 98 06/26/25 11:18 Respiratory Rate 16 06/26/25 11:18 Blood Pressure 145/80 H 06/26/25 11:18 Pulse Oximetry 99 06/26/25 11:18 Oxygen Delivery Room Air 06/26/25 11:18 Vital signs reviewed MDM - URI/Sore Throat MDM Narrative Medical decision making narrative: At the time of visit patient is resting comfortably on the exam table. Patient appears to be nontoxic. Complaints of nasal congestion, cough, sore throat, shortness breath, and chest congestion/tightness x3 days. She reports is coughing up green phlegm. History of asthma. She is a current smoker. Allergies to prednisone-makes her feel confused/drunk. Has not taken any other steroids. History of seizures-takes Keppra. No fevers, chills, body aches. On exam patient has clear nasal drainage, TMs congested, postnasal, lung sounds tight with faint rhonchi, heart rates regular rate rhythm. Labs: COVID, flu, strep test were ordered and negative in the clinic today Plan: I suspect patient has asthma exacerbation. Prescription for azithromycin and levalbuterol was sent to the pharmacy. Recommend follow-up with PCP in 3-5 days if symptoms persist. Go to the emergency room if symptoms worsen. Quit smoking. Supportive measures were discussed with the patient and they voiced understanding discharge instructions and agrees to treatment plan. Return precautions reviewed Differential Diagnosis Differential diagnosis: Likely upper respiratory infection, otitis media, sinusitis, viral infection, bronchitis, influenza, pharyngitis and other (COVID) Lab Data Labs: Lab Results 06/26/25 Range/Units 11:46 POC Influenza A Ag Negative (Negative) POC Influenza B Ag Negative (Negative) POC SARS CoV-2 Ag Negative (Negative) POC Grp A Strep Screen Negative (Negative) Discharge Plan Discharge Clinical Impression: Asthma exacerbation Qualifiers: Asthma severity: unspecified severity Asthma persistence: unspecified Qualified Code(s): J45.901 - Unspecified asthma with (acute) exacerbation Patient Disposition: Home Condition: Stable Instructions: Antibiotic Form, Asthma (ED) Additional Instructions: COVID, influenza, and strep test were negative in the clinic today. Take prescription medications only as prescribed-Xopenex and azithromycin Quit smoking. Increase fluids and stay well hydrated May take Tylenol or motrin as directed on bottle for pain/fever May use Flonase 1 spray in each nare daily May take OTC antihistamines such as Zyrtec or Claritin daily as directed on bottle May apply Vicks vapor rub to chest to open sinuses Sinus rinses for congestion Cepacol spray, cough drops, throat lozenges, warm tea with honey/lemon, gargle salt water to soothe throat BRAT diet for diarrhea Clear liquids x 24 hours then advance as tolerated for nausea/vomiting Go to the ED if you develop a worsening in your condition- high fever not controlled by Tylenol or Motrin, dehydration, weakness, lethargy, shortness of breath, or chest pain. Follow up with your PCP in 3-5 days if symptoms persist. Patient Language: Japanese Prescriptions: New levalbuterol tartrate 45 mcg/actuation HFA aerosol inhaler 2 inh inhalation Q6H 30 Days Qty: 15 0RF Rx Instructions: patient gets chest palpitation with regular albuterol inhaler azithromycin 250 mg tablet See Rx Instructions .ROUTE .COMPLEX Qty: 6 0RF Rx Instructions: For 250 mg dose pack: take 500 mg today (day 1), then 250 mg for 4 days (days 2-5) levalbuterol tartrate 45 mcg/actuation HFA aerosol inhaler 2 inh inhalation Q6H PRN (Reason: shortness of breath or wheezing) 30 Days Qty: 15 0RF Rx Instructions: Patient can't take regular albuterol inhaler as is causes palpitations No Action albuterol sulfate 90 mcg/actuation HFA aerosol inhaler 1 inh inhalation QID PRN (Reason: shortness of breath or wheezing) Qty: 8.5 0RF levetiracetam [Keppra] 500 mg tablet 500 mg PO BID Qty: 30 0RF Follow-up/Referrals: Victorino,LIDIA Xie [Primary Care Provider] Time of Disposition: 11:40 Quality NIHSS Nursing Documentation ED NIHSS nursing documentation: reviewed/agree
[2025-06-26 11:18] VITALS: BP 145/80; PULSE 98; RESP 16; TEMP 36.9; O2SAT 99
[2025-06-26 11:50] LABS: EDCOVIDSCREEN Negative (Negative); EDINFLUASCREEN Negative (Negative); EDINFLUBSCREEN Negative (Negative); EDSTREPNEGPOS1 Negative (Negative)
== END 2025-06-26 11:45 | disposition home or self-care (01) ==
PROVIDERS: Emergency Provider Nurse Practitioner Family; PCP Physician Assistant
DX: J45.901 Unspecified asthma with (acute) exacerbation (principal); Z20.822 Contact with and (suspected) exposure to COVID-19; F17.210 Nicotine dependence, cigarettes, uncomplicated; M19.90 Unspecified osteoarthritis, unspecified site; M41.9 Scoliosis, unspecified
CPT/HCPCS: 87426; 87804; 87880; 99213; G0463

== ENCOUNTER 2025-08-30 08:03 | Emergency (ER) | payer OTHER, SELFPAY ==
[2025-08-30 08:13] VITALS: BP 152/94; PULSE 76; RESP 18; TEMP 36.5; O2SAT 99
--- NOTE | 2025-08-30 08:19 | ED.DENTAL ---
HPI - Dental/Oral General Chief complaint: Skin/Abscess/Foreign Body Stated complaint: Mouth Sore Time Seen by Provider: 08/30/25 08:19 Source: patient, family, RN notes reviewed and old records reviewed Mode of arrival: ambulatory Limitations: no limitations History of Present Illness HPI Narrative: 45Year old female presents to Express Care with complaints of swelling to the left cheek with firm tender tissue noted. Patient reports she had knot on inside of her mouth and she took a needle and tried to drain it with no results. Patient reports difficulty eating denies any shortness of breath and denies any difficulty swallowing. No Joaquin angina noted and no swelling to the jaw area. Patient reports no fevers that she is aware of, states she has felt hot but she is perimenopausal. and has not checked her temperature. Patient reports that she has taken some Ibuprofen without pain relief. Onset (ago): day(s) (3) Severity scale (1-10): 9 Treatment prior to arrival: other (knot inside of left cheek tried to drain with needle) Related Data Allergies Allergy/AdvReac Type Severity Reaction Status Date / Time prednisone AdvReac Unknown Confusion Verified 08/30/25 08:14 Review of Systems Review of Systems: CONSTITUTIONAL: Denies fever, chills, or sweats. CARDIOVASCULAR: Denies chest pain, palpitations, or edema. RESPIRATORY: Denies cough or dyspnea. GASTROINTESTINAL: Denies abdominal pain, nausea, vomiting SKIN: Reports redness and swelling inside of her left cheek and she tried to open by sticking needle in it. Patient has firm tissue to the left cheek with swelling and discomfort. Denies purulent drainage, pain beyond proportion, no swelling to jaw line or any difficulty with swallowing or with her breathing MUSCULOSKELETAL: Denies myalgia. NEUROLOGIC: Denies headache, numbness All systems reviewed & are unremarkable except as noted in HPI and below PMFSH Past Medical History Medical History (Updated 08/31/25 @ 00:00 by Andrew George) Seizure disorder Anxiety Scoliosis Arthritis Surgical History Surgical History (Updated 08/30/25 @ 08:34 by Alyse Luque APRN) Previous section x3 Tubal ligation status Social History Social History (Updated 08/30/25 @ 08:35 by Alyse Luque APRN) Smoking packs per day: 1 Smoking cigarettes per day: 20.0 Smoking status: Current every day smoker Tobacco type: cigarettes Alcohol intake: current Alcohol use details: states a couple of shots daily Substance use: current Substance use type: marijuana Last use: occasional Living arrangements: alone Gender identity (if verbalized by the patient): Female Comments At time of signature, agree with nursing past medical, surgical, social and family history. There is no relevant family history pertinent to the presenting complaint Exam Narrative: GENERAL: Well-appearing, well-nourished, and in no acute distress. HEAD: Normocephalic, atraumatic. EYES: PERRLA and EOMI. ENT: Nares clear, no rhinorrhea or epistaxis. Mucous membranes moist.TM;s normal, throat pink with no swelling or exudates, inside of left cheek redness and swelling noted with no open area of drainage, has firm area noted to outside of left cheek also with some tenderness on palpation. NECK: Supple.no lymphadenopathy, CHEST: Clear to auscultation. No respiratory distress.no acute cough noted or any dyspnea,SAO2 99% on room air HEART: Regular rate and rhythm. No murmur heard. Normal peripheral pulses. ABDOMEN: Soft, nontender, nondistended, normal active bowel sounds. EXTREMITIES: Normal range of motion. No edema. SKIN: Warm, dry. Erythema, induration, tenderness,firmness to left cheek with no acute redness or any open tissue noted to outside of skin of left cheek, no acute warmth noted. Area is tender to palpation, no swelling along jaw NEURO: No focal deficits. Alert and oriented x3. Course Course Level of Care: Express Care Visit Vital Signs Vital signs: Vital Signs Temperature 36.5 C 08/30/25 08:13 Pulse Rate 76 08/30/25 08:13 Respiratory Rate 18 08/30/25 08:13 Blood Pressure 152/94 H 08/30/25 08:13 Pulse Oximetry 99 08/30/25 08:13 Oxygen Delivery Room Air 08/30/25 08:13 Temperature 36.5 C 08/30/25 08:13 Pulse Rate 76 08/30/25 08:13 Respiratory Rate 18 08/30/25 08:13 Blood Pressure 152/94 H 08/30/25 08:13 Pulse Oximetry 99 08/30/25 08:13 Oxygen Delivery Room Air 08/30/25 08:13 reviewed MDM MDM Narrative Medical decision making narrative: Patient has firm tender tissue to the left cheek with no acute warmth or any open skin noted. Patient reports had internal swollen area on the inside of her mouth along left cheek and she stuck a needle in in trying to drain it with no results. She has since developed firm tender tissue to outer left cheek which is painful with no induration of tissue. Patient pplaced on Clindamycin antibiotics and Peridex mouth wash with strict instructions on follow up care and reasons to seek care in ED with understanding voiced Differential Diagnosis Differential Diagnosis: Differential diagnostic considerations for skin/abscess/foreign body issues include abscess of skin or subcutaneous tissue, viral exanthem, dermatophytosis, urticaria, herpes zoster, allergic reaction to drug, cellulitis, eczema, insect bites, impetigo, contact dermatitis, vasculitis. Critical Care Time Critical Care Time Critical Care Time: No Discharge Plan Discharge Clinical Impression: Abscess of internal cheek, left Patient Disposition: Home Condition: Stable Instructions: Antibiotic Form, Abscess (ED) Additional Instructions: Peridex mouthwash use twice daily watch for increasing infection--redness, swelling, drainage Tylenol or ibuprofen for any fever pain follow up with PCP in 3days for a wound check recheck if develop fever, chills, increasing symptom Go to the ER if your symptoms become worse of if ANY new symptoms develop antibiotics as prescribed take all doses take with food if no improvement in 72 hours go directly to the emergency room for further evaluation, if any difficulty with swallowing or with your breathing or increase in size of abscess go to the ED If your symptoms persist, change or worsen significantly before you can contact your personal physician then please, without delay, go to the emergency department for further evaluation. Follow-up with PCP in 7-10 days or sooner if needed Follow up with PCP soon in regards to your blood pressure which is elevated above threshold for referral. Blood pressure above 120/80 may indicate pre-hypertension. 152/94 Patient Language: Singaporean Prescriptions: New clindamycin HCl [Cleocin HCl] 300 mg capsule 300 mg PO Q8H Qty: 30 0RF Rx Instructions: take with food chlorhexidine gluconate [Peridex] 0.12 % mouthwash 15 ml mucous membrane BID Qty: 473 0RF No Action levalbuterol tartrate 45 mcg/actuation HFA aerosol inhaler 2 inh inhalation Q6H PRN (Reason: shortness of breath or wheezing) 30 Days Qty: 15 0RF Rx Instructions: Patient can't take regular albuterol inhaler as is causes palpitations levetiracetam [Keppra] 500 mg tablet 500 mg PO BID Qty: 30 0RF Follow-up/Referrals: Victorino,LIDIA Xie [Primary Care Provider] Stand Alone Forms: Work/School Release IP Time of Disposition: 08:39 Quality [place] Coma Scale Eyes: Open Verbal: Oriented and Alert Motor: Follows Commands [place] Coma Total Score: 15
== END 2025-08-30 08:42 | disposition home or self-care (01) ==
PROVIDERS: Emergency Provider Registered Nurse; PCP Physician Assistant
DX: K12.2 Cellulitis and abscess of mouth (principal); G40.909 Epilepsy, unspecified, not intractable, without status epilepticus; M19.90 Unspecified osteoarthritis, unspecified site; M41.9 Scoliosis, unspecified; F17.210 Nicotine dependence, cigarettes, uncomplicated; F12.90 Cannabis use, unspecified, uncomplicated
CPT/HCPCS: 99213; G0463